=== PATIENT | female | born 1965 | race African-American/Black ===

== ENCOUNTER 2016-12-19 06:55 | Emergency (ER) | payer MEDICARE, MEDICAID ==
[~2016-12-19] VITALS: Ht 152.4 cm; Wt 83.0 kg
[~2016-12-19 06:55] MED LIST: ASPIRIN EC81 MG PO; ATORVASTATIN CA40 MG PO; CALTRATE 602 PO; CLONAZEPAM0.5 MG PO; FLONASE NASAL50 MCG NAB; GABAPENTIN300 MG PO; KLOR-CON 1010 ME1 PO; LIDODERM5 % EX; LOSARTAN/HCT1 TA1 PO; LUMIGAN0.01 % OU; MULTIVITAMI1 PO; OMEPRAZOLE20 MG PO; PIOGLITAZONE HC15 MG PO; PROAIR HFA IN; SEROQUEL XR150 MG PO; SINGULAIR PO; TOPIRAMATE100 MG PO; TOPROL XL100 MG PO; TOUJEO SOL300 UNIT/M SC; TOVIAZ4 MG PO; TRADJENTA5 MG PO; VOLTAREN1%GEL TOP
[2016-12-19] MEDS ORDERED: VESICARE5 M1 PO (07:15)
[2016-12-19] MEDS ORDERED: VRAYLAR1.5 MG PO (07:16)
[2016-12-19] MEDS ORDERED: TRESIBA FL200 UNIT/M IJ (07:17)
[2016-12-19] MEDS ORDERED: NOVOLOG FL100 UNIT/M IJ (07:18)
[2016-12-19 08:04] LABS: HEMATOCRIT 43.9 % (37.0-47.0); HEMOGLOBIN 14.8 g/dl (12.0-16.0); IMMATURE GRANULOCYTES 0.4 % (0.0-1.0); MEAN CELL VOLUME 87.6 fL CALC (80.0-100.0); MEAN CORPUSCULAR HGB 29.5 pG CALC (26.0-32.0); MEAN CORPUSCULAR HGB CONC 33.7 g/L CALC (32.0-36.0); NEUT# 4.57 thou/uL (2.00-7.15); RED BLOOD COUNT 5.01 mill/uL (4.20-5.60); RED CELL DISTRI WIDTH 13.2 % (11.5-15.5); URINE BILIRUBIN - DIPSTICK NEGATIVE (NEGATIVE); URINE BLOOD DIPSTICK NEGATIVE (NEGATIVE); URINE CLARITY SLIGHT CLOUDY; URINE COLOR YELLOW; URINE GLUCOSE - DIPSTICK 100 mg/dL (NEGATIVE); URINE KETONE NEGATIVE (NEGATIVE); URINE LEUK ESTERASE TRACE (NEGATIVE); URINE NITRITE - DIPSTICK NEGATIVE (Negative); URINE PH 5.5 (4.5-8.0); URINE PROTEIN - DIPSTICK NEGATIVE (NEG-TRACE); URINE UROBILINOGEN - DIPSTICK 0.2 E.U./dL (0.2)
[2016-12-19 08:14] LABS: ALBUMIN 3.9 g/dL (3.2-5.0); ALKALINE PHOSPHATASE 75 u/l (38-126); ANION GAP 16 (6-22 (CALC)); BILIRUBIN, TOTAL 0.6 mg/dL (0.0-1.4); BUN 16 mg/dL (7-17); BUN/CREATININE RATIO 23 (12-20 (CALC)); CARBON DIOXIDE 23 mmol/l (22-30); CHLORIDE 103 mmol/l (95-108); CREATININE 0.7 mg/dL (0.5-1.0); GFR > 60 ML/MIN (>=60 (CALC)); GFR FOR AFR.AMER. > 60 ML/MIN (>=60 (CALC)); GLUCOSE 245 mg/dL (65-105); LIPASE 136 u/l (23-300); POTASSIUM 4.3 mmol/l (3.5-5.1); SGOT/AST 22 u/l (14-36); SGPT/ALT 31 u/l (9-52); SODIUM 137 mmol/l (137-146); TOTAL PROTEIN 7.2 g/dL (6.3-8.2)
[2016-12-19] MEDS ORDERED: MOTRIN400 MG PO (09:59)
[2016-12-19 10:07] VITALS: BP 131/88
== END 2016-12-19 10:13 | disposition home or self-care (01) ==
LOC: ED 06:55
PROVIDERS: Family Medicine
DX: R10.32 Left lower quadrant pain (principal); F20.9 Schizophrenia, unspecified; E11.9 Type 2 diabetes mellitus without complications; I10 Essential (primary) hypertension; J45.909 Unspecified asthma, uncomplicated
CPT/HCPCS: Q9967

== ENCOUNTER 2018-07-10 05:29 | Observation (INO) | payer MEDICARE, OTHER ==
[~2018-07-10] VITALS: Ht 152.4 cm; Wt 95.3 kg
[2018-07-10 05:20] VITALS: BP 134/79
[~2018-07-10 05:29] MED LIST changes: +MOTRIN400 MG PO; +NOVOLOG FL100 UNIT/M IJ; +TRESIBA FL200 UNIT/M IJ; +VESICARE5 M1 PO; +VRAYLAR1.5 MG PO
[2018-07-10 08:05] VITALS: BP 117/73
[2018-07-10] MEDS ORDERED: PIOGLITAZONE HC30 MG PO (10:35)
[2018-07-10] MEDS ORDERED: ATORVASTATIN CA80 MG PO (10:42)
[2018-07-10] MEDS ORDERED: BACLOFEN10 MG PO (10:49)
[2018-07-10 10:50] VITALS: BP 135/65
[2018-07-10] MEDS ORDERED: COLACE100 MG PO (10:50)
[2018-07-10] MEDS ORDERED: FISH OIL1000 MG PO (10:50)
[2018-07-10] MEDS ORDERED: FOLIC ACID1 MG PO (10:52)
[2018-07-10] MEDS ORDERED: FLOVENT DI100 MCG/BL PO (10:52)
[2018-07-10] MEDS ORDERED: HUMULIN R500 UNIT/1 SC ×2 (10:54→10:56)
[2018-07-10] MEDS ORDERED: XALATAN 0.005%2.5 ML OU (10:57)
[2018-07-10] MEDS ORDERED: LORATADINE10 M1 PO (10:58)
[2018-07-10] MEDS ORDERED: LOSARTAN POTASS50 MG PO (10:59)
[2018-07-10] MEDS ORDERED: BENICAR HCT1 TA1 PO (10:59)
[2018-07-10] MEDS ORDERED: TOLTERODINE TART2 MG PO (11:00)
[2018-07-10] MEDS ORDERED: VENTOLIN HFA IN (11:01)
[2018-07-10 15:40] VITALS: BP 141/63
[2018-07-10 19:00] VITALS: BP 138/71
[2018-07-10 21:31] LABS: CHOLESTEROL HDL RATIO 2.5 (<4.4 (CALC))
[2018-07-11 00:08] VITALS: BP 140/70
[2018-07-11 04:22] VITALS: BP 109/58
[2018-07-11 07:36] VITALS: BP 141/74
[2018-07-11 11:30] VITALS: BP 112/57
[2018-07-12] MEDS ORDERED: K-DUR/KLOR-CON20 MEQ PO (10:30)
[2018-07-12] MEDS ORDERED: TERBINAFINE HCL 1% EX (10:32)
[2018-07-12] MEDS ORDERED: VRAYLAR1.5 MG PO (10:35)
[2018-07-14] MEDS ORDERED: LEVEMIR100 UNIT/M SC (13:31)
[2018-07-14] MEDS ORDERED: CIPROFLOXACN500 MG PO (13:36)
== END 2018-07-11 16:25 | disposition home or self-care (01) ==
LOC: MS2 05:29
PROVIDERS: ADMIT Internal Medicine; ATTEND Internal Medicine
DX: E11.649 Type 2 diabetes mellitus with hypoglycemia without coma (principal); I10 Essential (primary) hypertension; E78.5 Hyperlipidemia, unspecified; G47.33 Obstructive sleep apnea (adult) (pediatric); F20.9 Schizophrenia, unspecified; J45.909 Unspecified asthma, uncomplicated; N32.81 Overactive bladder; Z86.73 Personal history of transient ischemic attack (TIA), and cerebral infarction without residual deficits; Z79.4 Long term (current) use of insulin; R06.02 Shortness of breath; J81.1 Chronic pulmonary edema